=== PATIENT | male | born 1950 | race Caucasian/White ===

== ENCOUNTER → 2017-03-21 | Day surgery (SDC) | payer OTHER ==
[2017-03-15 09:48] VITALS: Ht 170.2 cm; Wt 56.4 kg
[~2017-03-21] VITALS: Ht 170.2 cm; Wt 56.4 kg
[~2017-03-21] MED LIST: CEFI5CAP PO; CILO100T PO; ETOMIDATE 2 MG/ML 20 ML VIAL IV ONE; LIDOCAINE HCL 2% 2 ML VIAL (20MG/ML) ONE; MELO-84 PO; MIDAZOLAM HCL 1 MG/ML 2ML VIAL ONE; NUTRLIQ61 PO; ONDANSETRON INJ 2 MG/ML 2 ML VIAL ONE; PROPOFOL IV EMULSION 10 MG/ML 20 ML VIAL IV ONE; RANI150T85 PO; SERT25TA PO; SODIUM CHLORIDE 0.9% 500ML 500 ML IV ONE
--- NOTE | 2017-03-21 09:11 | Endo History and Physical ---
History & Physical Date of Service: Mar 21, 2017. Chief Complaint: Diarrhea, bloating Referring Physician: Myah Holt History of Present Illness colon stricture seen on imaging/diarrhea Past Surgical History Hx Cardiac Surgery: No Hx Internal Defibrillator: No Hx Pacemaker: No Hx Abdominal Surgery: Yes (LAPAROSCOPY) Hx of Implantable Prosthesis: No Hx Post-Op Nausea and Vomiting: No Hx Cancer Surgery: No Hx Thoracic Surgery: No Hx Orthopedic: No Hx Urinary Tract Surgery: No Family History None Social History Smoking Status: Former Smoker Hx Substance Use: No Hx Alcohol Use: No Allergies Coded Allergies: Clindamycin (Verified Allergy, Unknown, RASH, 03/15/17) Latex (Verified Allergy, Unknown, CONTACT FOR LONG PERIOD OF TIME-RASH, ) Levofloxacin (Verified Allergy, Unknown, RASH, 03/15/17) Current Medications Reported Home Medications Medications Dose Route/Sig Max Daily Dose Days Date Category Dose Instructions Peptamen 1.5 (Enteral Nutritional Formula) 1 Can Liqd 1 Can PO BID PRN 03/15/17 Reported Zoloft (Sertraline HCl) 25 Mg Tab 25 Mg PO QAM 03/15/17 Reported Suprax (Cefixime) 400 Mg Cap 1 Cap PO DAILY 03/15/17 Reported TX FOR CURRENT UTI-TAKING FOR 10 DAYS Zantac (Ranitidine HCl) 150 Mg Tab 150 Mg PO BID 03/15/17 Reported Pletal (Cilostazol) 100 Mg Tab 100 Mg PO BID 03/15/17 Reported Mobic (Meloxicam) 15 Mg Tab 2 Tab PO HS 03/15/17 Reported Vital Signs Weight (Kilograms): 56.36 Height (Feet): 5 Height (Inches): 7 Date Time Temp Pulse Resp B/P (MAP) Pulse Ox O2 Delivery O2 Flow Rate FiO2 03/21/17 08:49 36.7 83 18 121/92 (102) 96 Room Air Physical Exam General Appearance: no apparent distress Respiratory/Chest: Auscultation: rhonchi Cardiovascular: Heart Auscultation: RRR Abdomen: Inspection & Palpation: soft (thin) Liver: non-tender Assessment and Plan stable for colonoscopy
--- NOTE | 2017-03-21 09:58 | Discharge Instructions ---
Endoscopy Patient Instructions Date / Procedure(s) Performed Mar 21, 2017. Colonoscopy Allergy Information Coded Allergies: Clindamycin (Verified Allergy, Unknown, RASH, 03/15/17) Latex (Verified Allergy, Unknown, CONTACT FOR LONG PERIOD OF TIME-RASH, ) Levofloxacin (Verified Allergy, Unknown, RASH, 03/15/17) Discharge Date / Findings Mar 21, 2017. no sinister colon abnormalities seen up to ascending colon. Provider Instructions Activity Restrictions - No exercising or heavy lifting for 24 hours. - Do not drink alcohol the day of the procedure. - Do not drive a car or operate machinery until the day after the procedure. - Do not make any important decisions or sign important papers in 24 hours after the procedure. Following Day: - Return to full activity which may include returning to work/school. Diet Start your diet with liquids and light foods (jello, soup, juice, toast). Then eat your usual diet if not nauseated. Treatment For Common After Affects For mild abdominal pain, bloating, or excessive gas: - Rest - Eat lightly - Lie on right side Follow-Up Information Follow-up with Myah Holt as scheduled Anesthesia Information What You Should Know You have had a procedure that required some medicine to reduce anxiety and discomfort. This treatment is called moderate sedation. After receiving the treatment, you may be sleepy, but you will be able to breathe on your own. The effects of the treatment may last for several hours. Follow these instructions along with Activity/Diet recommendations noted above: * Do NOT do anything where dizziness or clumsiness would be dangerous. * Rest quietly at home today, then you can be up and about tomorrow. * Have a responsible person stay with you the rest of today. * You may have had an I.V. today. If so, you may take the dressing off later today. Recommendations Call your doctor if: * Trouble breathing * Continuous vomiting for more than 24 hours * Temperature above 101 degrees * Severe abdominal pain or bloating * Pain not relieved by pain medicine ordered * There is increased drainage or redness from any incision * A large amount of rectal bleeding greater than 2-3 tablespoons. (If you had a polyp/s removed or have hemorrhoids, a small amount of blood - from the rectum is to be expected.) * You have any unanswered questions or concerns. IN THE EVENT OF A SERIOUS EMERGENCY, GO TO THE NEAREST EMERGENCY ROOM Your discharge instructions were prepared by provider Jose Antonio Sellers. Patient Instructions Signature Page Gaston Jones Patient (or Guardian) Signature/Date: I have read and understand the instructions given to me by my caregivers. Caregiver/RN/Doctor Signature/Date: The above-named patient and/or guardian has received patient instructions on this date. + Original Patient Signature Page (only) stays with chart. Please make copy for patient.
[2017-03-21 10:28] VITALS: BP 147/81; PULSE 73; O2SAT 97
--- NOTE | 2017-03-21 10:32 | Anesthesiology Progress Note ---
Anesthesia Post Op Note Date & Time Mar 21, 2017 at 10:32 Vital Signs Vital Signs Past 12 Hours Date Time Temp Pulse Resp B/P (MAP) Pulse Ox O2 Delivery O2 Flow Rate FiO2 03/21/17 10:28 73 18 147/81 (103) 97 Room Air 03/21/17 10:13 76 18 138/79 (98) 98 Room Air 03/21/17 09:57 84 18 130/73 (92) 100 Room Air 03/21/17 08:49 36.7 83 18 121/92 (102) 96 Room Air Notes Mental Status: alert / awake / arousable, participated in evaluation Pt Amnestic to Procedure: Yes Nausea / Vomiting: adequately controlled Pain: adequately controlled Airway Patency, RR, SpO2: stable & adequate BP & HR: stable & adequate Hydration State: stable & adequate Anesthetic Complications: no major complications apparent
--- NOTE | 2017-03-21 10:41 | GI REPORT ---
Procedure Date: 03/21/2017 9:24 AM Procedure: Colonoscopy Indications: Abnormal CT of the GI tract, Change in bowel habits Medicines: See the Anesthesia note for documentation of the administered medications Complications: No immediate complications. Estimated Blood Loss: Estimated blood loss: none. Procedure: Pre-Anesthesia Assessment: - Prior to the procedure, a History and Physical was performed, and patient medications, allergies and sensitivities were reviewed. The patient's tolerance of previous anesthesia was reviewed. - The risks and benefits of the procedure and the sedation options and risks were discussed with the patient. All questions were answered and informed consent was obtained. - Patient identification and proposed procedure were verified prior to the procedure by the physician and the nurse. The procedure was verified in the pre-procedure area. - Pre-procedure physical examination revealed no contraindications to sedation. - After reviewing the risks and benefits, the patient was deemed in satisfactory condition to undergo the procedure. After I obtained informed consent, the scope was passed under direct vision. Throughout the procedure, the patient's blood pressure, pulse, and oxygen saturations were monitored continuously. The scope was introduced through the anus with the intention of advancing to the cecum. The scope was advanced to the ascending colon before the procedure was aborted. Medications were given. The colonoscopy was performed without difficulty. The patient tolerated the procedure well. The quality of the bowel preparation was poor. Findings: The perianal and digital rectal examinations were normal. A few small-mouthed diverticula were found in the sigmoid colon. The colon was dilated but with no strictures. Because of the floppy nature of the colon and poor prep, I was unable to advance the colonoscope to the cecal cap. The exam was otherwise without abnormality on direct and retroflexion views. Impression: - Preparation of the colon was poor. - Diverticulosis in the sigmoid colon. - Redundant and floppy colon with no strictures. - Scope could not be advanced to cecal cap due to it's floppy natures and poor prep. - The examination was otherwise normal on direct and retroflexion views. - No specimens collected. Recommendation: - Discharge patient to home. - Follow up with regular providers. Jose Antonio Sellers M.D. Jose Antonio Sellers MD 03/21/2017 10:41:10 AM This report has been signed electronically. Note Initiated On: 03/21/2017 9:24 AM I attest to the content of the Intraoperative Record and orders documented therein, exceptions below
== END | disposition home or self-care (01) ==
LOC: C.GI 07:35
PROVIDERS: ATTEND Internal Medicine Gastroenterology
DX: K57.30 Diverticulosis of large intestine without perforation or abscess without bleeding (principal); Z87.891 Personal history of nicotine dependence; Z79.899 Other long term (current) drug therapy; I10 Essential (primary) hypertension; K21.9 Gastro-esophageal reflux disease without esophagitis; M19.90 Unspecified osteoarthritis, unspecified site